=== PATIENT | male | born 2000 | race Caucasian/White ===

== ENCOUNTER 2025-03-09 15:31 | Emergency (ER) | payer SELFPAY ==
--- OUTSIDE RECORDS SUMMARY | 2021-09-18 04:15 | XMS_ITS | Continuity of Care Document ---
Author Organization [facility] Address [address] [id number] [address] Phone Care Team Providers Care Supervisor Order Takers Name Role Phone Rupinder Escobar DDS Unavailable Unavaila ble Medications Medication Instructions Dosage Effective Dates (start - stop) Status Comments amoxicillin 500 mg capsule take 2 capsules by oral route at first dose and then 1 every 8 hours until gone for dental infection - Active hydrocodone 5 mg-acetaminophen 325 mg tablet take 1 tablet by oral route every 6 hours as needed for pain from oral surgery - Active Procedures Procedure Date Post Op No Charge EDR Approval Note Post Op No Charge EDR Approval Note Limited Oral Evaluation Problem Focused Intraoral Periapical First Film Intraoral Periapical Each Additional Film Extraction, Erupted Tooth Or Exposed Hiral t (Elevati EDR Approval Note Extraction, Erupted Tooth Or Exposed Hiral t (Elevati Limited Oral Evaluation Problem Focused Intraoral Periapical First Film EDR Approval Note Intraoral Periapical First Film Limited Oral Evaluation Problem Focused Extraction, Erupted Tooth Or Exposed Hiral t (Elevati Extraction, Erupted Tooth Or Exposed Hiral t (Elevati EDR Approval Note Intraoral Periapical First Film Intraoral Periapical Each Additional Film Limited Oral Evaluation Problem Focused Extraction, Erupted Tooth Or Exposed Hiral t (Elevati Extraction, Erupted Tooth Or Exposed Hiral t (Elevati EDR Approval Note EDR Approval Note Limited oral eval, x-ray & 1st extractio n Urgent Each Additional Extraction Intraoral Periapical First Film Intraoral Periapical Each Additional Film Intraoral Periapical Each Additional Film Intraoral Periapical Each Additional Film Comprehensive Oral Evaluatio n New Or Established Bitewings Four Films EDR Approval Note Self-management Goals Reviewed 17 Oral Hygiene Instructions Nutritional Counseling For Control Of De ntal Disea Caries High Risk Limited Oral Evaluation Problem Focused EDR Approval Note Bitewings Four Films Periodic Oral Evaluation Established Patient Prophylaxis Adult EDR Approval Note EDR Approval Note Limited Oral Evaluation Problem Focused Intraoral Periapical First Film Intraoral Periapical Each Additional Film Intraoral Periapical Each Additional Film EDR Approval Note Limited Oral Evaluation Problem Focused Intraoral Periapical First Film EDR Approval Note Oral Hygiene Instructions Nutritional Counseling For Control Of De ntal Disea Caries High Risk Pulp Cap Indirect (Excluding Final Moravian) Amalgam One Surface, Primary Or Permanent Amalgam Two Surfaces, Primary Or Permanent Amalgam Four Or More Surfaces, Primary Or Perman EDR Approval Note Oral Hygiene Instructions Nutritional Counseling For Control Of De ntal Disea Caries Moderate Risk Resin-Based Composite One Surface, Anterior EDR Approval Note Core Buildup, Including Any Pins 2015 Anterior (Excluding Final Moravian) M EDR Approval Note Self-management Goals Reviewed 16 Oral Hygiene Instructions Nutritional Counseling For Control Of De ntal Disea Caries High Risk Resin-Based Composite Four Or More Surfaces Or I EDR Approval Note Self-management Goals Reviewed 16 Oral Hygiene Instructions Nutritional Counseling For Control Of De ntal Disea Caries High Risk Resin-Based Composite One Surface, Anterior Amalgam Three Surfaces, Primary Or Permanent Amalgam One Surface, Primary Or Permanent EDR Approval Note Self-management Goals Reviewed 16 Oral Hygiene Instructions Nutritional Counseling For Control Of De ntal Disea Caries High Risk Oral Hygiene Instructions Nutritional Counseling For Control Of De ntal Disea Caries High Risk Amalgam One Surface, Primary Or Permanent Amalgam One Surface, Primary Or Permanent Amalgam One Surface, Primary Or Permanent Resin-Based Composite Four Or More Surfaces, Pos Pulp Cap Indirect (Excluding Final Moravian) EDR Approval Note Amalgam Two Surfaces, Primary Or Permanent EDR Approval Note Self-management Goals Reviewed 16 Oral Hygiene Instructions Nutritional Counseling For Control Of De ntal Disea Caries High Risk Comprehensive Oral Evaluatio n New Or Established Bitewings Four Films Panoramic Film Intraoral Periapical First Film Intraoral Periapical Each Additional Film Intraoral Periapical Each Additional Film Prophylaxis Adult Topical Fluoride Varnish; Therapeutic Ap plication Self-management Goals Reviewed 16 New Caries Lesion Oral Hygiene Instructions Nutritional Counseling For Control Of De ntal Disea Caries High Risk EDR Approval Note IMMUNIZATION ADMIN HEP A VACC, PED/ADOL, 2 DOSE IMMUNIZATION ADMIN HPV VACCINE 4 VALENT, IM IMMUNIZATION ADMIN MENINGOCOCCAL VACCINE, IM IMMUNIZATION ADMIN TDAP VACCINE >7 IM IMMUNIZATION ADMIN CHICKEN POX VACCINE, SC OFFICE/OUTPATIENT VISIT, EST IMMUNIZATION ADMIN FLU VACCINE NO PRESERV 3 & > OFFICE/OUTPATIENT VISIT, EST OFFICE/OUTPATIENT VISIT, NEW H1N1 Vaccine Advance Directives Directive Yes / No Effective Date File Name No Information Encounters Encounter Description Practice Location Reason(s) For Visit Diagnoses Date Provider Providers Copied on Encounter [facility], [id number]- [facility] [place], [id number], [place] tel:[phone] [facility] No Information 2 Shawn Chance. [address], [place], [address], [place]. tel:[phone] Referring Provider: Rupinder Escobar, [address] [place], [address] . tel:[phone] [facility], [id number][facility] [place] [id number], [place] tel:[phone] [facility] No Information 2 Roge Calero. [address] [place], [address], [place]. tel:[phone] Referring Provider: Abdias Nieves, [address] [place], [address]. tel:[phone] [facility], [id number], [address], [place] tel:[phone] [facility] No Information 2 Julissa Chicas. [address], [place], [address], [place]. tel:[phone] Referring Provider: Juan Francisco Purcell, [address] [place], [address] . tel:[phone] [facility], [id number], [id number], [place] tel:[phone] [facility] Encounter for dental exam and cleaning w/o abnormal findings 1 Lux Randle. [address] [place], [address], [place]. tel:[phone] Referring Provider: Jer Wasserman, [address] [place], [address]. tel:[phone] sulting Provider: Meron Mckee, [address] [place], [address] . tel:[phone] [facility], [id number], [address], [place] tel:[phone] [facility] Encounter for dental exam and cleaning w/o abnormal findings 0 Keshawn Santillan. [address], [place], [address], [place]. tel:[phone] Referring Provider: Tyrell Liao, [address] [place], [address] . tel:[phone] [facility], [id number]- [facility], [place], [place], [address], [place] tel:[phone] [facility] Encounter for dental exam and cleaning w/o abnormal findings 0 Keshawn Santillan. [address], [place], [address], [place]. tel:[phone] Referring Provider: Tyrell Liao, [address] [place], [address] . tel:[phone] [facility], [id number]- [facility], [place], [place], [address], [place] tel:[phone] [facility] Encounter for dental exam and cleaning w/o abnormal findings No Information [facility], [id number]- [place], [address], [place] tel:[phone] [facility] Encounter for dental exam and cleaning w/o abnormal findings No Information [facility], [id number]- [facility], [place], [place], [address], [place] tel:[phone] [facility] Encounter for dental exam and cleaning w/o abnormal findings Roge Calero. [address] [place], [address], [place]. tel:[phone] Referring Provider: Abdias Nieves, [address] [place], [address]. tel:[phone] [facility], [id number]- [place], [address], [place] tel:[phone] [facility] Encounter for dental exam and cleaning w/o abnormal findings 7 Lux Randle. [address] [place], [address], [place]. tel:[phone] Referring Provider: Jer Wasserman, [address] [place], [address]. tel:[phone] [facility], [id number]- [place], [address], [place] tel:[phone] [facility] Encounter for dental exam and cleaning w/o abnormal findings 4- 7 No Information [facility], [address] [id number]- [place], [address], [place] tel:[phone] [facility] Encounter for dental exam and cleaning w/o abnormal findings 8- 6 No Information [facility], [id number]- [place], [address], [place] tel:[phone] [facility] Encounter for dental exam and cleaning w/o abnormal findings 0 1- 6 No Information [facility], [id number] [id number]- [place], [address], [place] tel:[phone] [facility] Encounter for dental exam and cleaning w/o abnormal findings 0- 6 No Information [facility], [id number]- [place], [address], [place] tel:[phone] [facility] Encounter for dental exam and cleaning w/o abnormal findings 0 2- 6 No Information [facility], [id number]- [place], [address], [place] tel:[phone] [facility] Encounter for dental exam and cleaning w/o abnormal findings 5-201 6 No Information [facility], [id number]- [facility], [place], [place], [address], [place] tel:[phone] [facility] No Information 6 No Information [facility], [address] [id number] [id number], [place], [address], [place] tel:[phone] [facility] No Information 6 No Information [facility], [address] [id number], [place], [address], [place] tel:[phone] [facility] Encounter for dental exam and cleaning w/o abnormal findings 6 No Information [facility], [address] [id number], [place], [place], [address], [place] tel:[phone] [facility] F1 No Information 2 No Information OFFICE/OUTPAT IENT VISIT, [facility], [id number], [address], [place] tel:[phone] LINK Immunization (chief complaint) No Information 2 No Information OFFICE/OUTPAT IENT VISIT, [facility], [address] [id number], [place], [place], [address], [place] tel:[phone] LINK Immunizations (chief complaint) No Information 1 No Information [facility], [address] [id number] [id number], [address], [place] tel:[phone] Family [facility] F1 No Information 0 No Information OFFICE/OUTPAT IENT VISIT, [facility], [address] [id number] [place] [address], [place] tel:[phone] LINK ear pain (chief complaint) No Information 201 0 No Information [facility], [address] [id number]- [facility], [place], [place], [address], [place] tel:[phone] Family [facility] F1 No Information 6200 9 No Information Family History Family Member Type Diagnosis Age At Onset Mother Problem (finding) Alive and well Immunizations Vaccine Date Status Comments Hep A (ped/adol, 2 dose) administered Joselyn rce: New Immunization Record Tdap (Boostrix r) administered Source: Ne w Immunization Record MCV4 (11-55 yrs) administered Source: New Immunization Record Varicella administered Source: New Imm unization Record flu (split) preservative brad e, 3 yrs or older administered Source: New Immuniza tion Record H1N1 Vaccine administered Source: Source Unspecified H1N1 administered Source: New Imm unization Record polio, inactivated (IPV) administered Joselyn rce: New Immunization Record MMR administered Source: New Imm unization Record DTaP administered Source: New Imm unization Record varicella administered Source: New Imm unization Record polio, inactivated (IPV) administered Joselyn rce: New Immunization Record MMR administered Source: New Imm unization Record HIB - unspecified administered Note: Set procedure code where blank for historical non-specific HIB entry. ; Source: New Immunization Record DTaP administered Source: New Imm unization Record polio, inactivated (IPV) administered Joselyn rce: New Immunization Record HIB - unspecified administered Note: Set procedure code where blank for historical non-specific HIB entry. ; Source: New Immunization Record hep B (ped/adol, 3 dose) administered Joselyn rce: New Immunization Record DTaP administered Source: New Imm unization Record polio, inactivated (IPV) administered Joselyn rce: New Immunization Record HIB - unspecified administered Note: Set procedure code where blank for historical non-specific HIB entry. ; Source: New Immunization Record hep B (ped/adol, 3 dose) administered Joselyn rce: New Immunization Record DTaP administered Source: New Imm unization Record hep B (ped/adol, 3 dose) administered Joselyn rce: New Immunization Record HPV (quadrivalent) administered Source: N ew Immunization Record Payers Payer name Insurance type Covered alliance party ID Authoriza tion(s) No Information Social History Type Description Quantity Date Captured Comments Alcohol Use Details Caffeine Use Details Unknown Tobacco Use Status No Information Smoking Status No Information Sex Male Sexual Orientation Heterosexual Gender Identity Male Chief Complaint And Reason For Visit No Information Reason For Referral Reason For Referral No Information History Of Present Illness Encounter Date Complaint History Of Prese nt Illness No Information Functional Status Date Functional Assessmen t No Information Instructions Date Instruction Additional Infor mation Lifestyle education Related to D ental Examination Lifestyle education Related to D ental Examination Lifestyle education Related to D ental Examination Lifestyle education Related to D ental Examination Lifestyle education Related to D ental Examination Lifestyle education Related to D ental Examination Lifestyle education Related to D ental Examination Lifestyle education Related to D ental Examination Lifestyle education Related to D ental Examination Lifestyle education Related to D ental Examination Lifestyle education Related to D ental Examination Recheck if symptoms worsen or not improved. Related to [employer], serous Should resolve on its own. Relat ed to [employer], serous Assessments Type Assessment Date No Information Patient Care Teams Name Effective Dates (start - stop) Status Members No Information
--- OUTSIDE RECORDS SUMMARY | 2025-03-09 15:37 | XMS_ITS | Encounter Summary ---
Author Organization [facility] Address [address] [place] [address] Care Team Providers Care Pulper Name Role Phone Unavailable Primary Care Provider Unavailabl e Reason for Visit * Reason Comments Office Visit: Converted Data Conversion Encounter Details Date Type Department Care Team (Late st Contact Info) Description 03/11/2024 Dental Interim Note [facility] [address] [place] [address] Default, [facility] [place] Social History Tobacco Use Types Packs/Day Years Used Date Smoking Tobacco: Never Assessed Social Connections Answer Date Recorded Social Connections and Isolation 0 12/26/2023 Financial Resource Strain Answer Date R ecorded Financial Resource Strain 0 2023 Stress Answer Date Recorded Stress 0 12/26/2023 Physical Activity Answer Date Recorded Physical Activity 0 12/26/2023 Food Insecurity Answer Date Recorded Food 0 12/26/2023 Transportation Needs Answer Date Record ed Transportation 0 12/26/2023 Housing Stability Answer Date Recorded Housing 0 12/26/2023 Safety and Environment Answer Date Arnoldo rded Safety 0 12/26/2023 Utilities Answer Date Recorded Utilities 0 12/26/2023 Employment Answer Date Recorded Employment 0 12/26/2023 Sex and Gender Information Value Date Recorded Sex Assigned at Not on file Legal Sex Male 7:20 PM PDT Gender Identity Male 02/22/2024 5:23 PM PDT Sexual Orientation Straight 02/22/2024 5: 23 PM PDT documented as of this encounter Plan of Treatment Scheduled Orders Name Type Priority Associated Diagnoses Order Schedule 2 MO 2 MO RESIN-BASED COMPOSITE - TWO SURFACES POSTERIOR Dental Procedures Routine 1 Occurrenc es starting 02/19/2024 4 DO 4 DO RESIN-BASED COMPOSITE - TWO SURFACES POSTERIOR Dental Procedures Routine 1 Occurrenc es starting 02/19/2024 7 7 CROWN - PORCELAIN FUSED TO CARBALLO METAL Dental Procedures Routine 1 Occurrences starting 02/19/2024 8 DF 8 DF RESIN-BASED COMPOSITE TWO SURFACES ANTERIOR Dental Procedures Routine 1 Occurrence s starting 02/19/2024 12 DO 12 DO RESIN-BASED COMPOSITE - TWO SURFACES POSTERIOR Dental Procedures Routine 1 Occurrenc es starting 02/19/2024 16 16 EXTRACTION ERU TOOTH RQR REMV BONE &/SECTN TOOTH Dental Procedures Routine 1 Occurrenc es starting 02/19/2024 17 17 EXTRACTION ERU TOOTH RQR REMV BONE &/SECTN TOOTH Dental Procedures Routine 1 Occurrenc es starting 02/19/2024 20 O 20 O RESIN-BASED COMPOSITE - ONE SURFACE POSTERIOR Dental Procedures Routine 1 Occurrence s starting 02/19/2024 21 O 21 O RESIN-BASED COMPOSITE - ONE SURFACE POSTERIOR Dental Procedures Routine 1 Occurrence s starting 02/19/2024 32 32 EXTRACTION ERU TOOTH RQR REMV BONE &/SECTN TOOTH Dental Procedures Routine 1 Occurrenc es starting 02/19/2024 10 10 CROWN - PORCELAIN/CERAMIC Dental Procedures Routine 1 Occurrence s starting 02/19/2024 10 10 ENDODONTIC THERAPY ANTERIOR TOOTH Dental Procedures Routine 1 Occurrences starting 02/19/2024 7 7 CROWN - PORCELAIN/CERAMIC Dental Procedures Routine 1 Occurrence s starting 02/19/2024 9 MIDFL 9 MIDFL RESIN-BASED COMPOSITE-4/> SURFACES ANTERIOR Dental Procedures Routine 1 Occurrence s starting 02/19/2024 documented as of this encounter Visit Diagnoses Not on filedocumented in this encounter
--- OUTSIDE RECORDS SUMMARY | 2025-03-09 15:37 | XMS_ITS | Clinical Summary ---
Author Organization [facility] Address [address] [place] [address] Care Team Providers Care Computer Sciences Professor Name Role Phone Unavailable Primary Care Provider Unavailabl e Source Comments PLEASE NOTE, if this patient is a minor, it may be UNLAWFUL to discuss sensitive information that is contained in these records (such as FAMILY PLANNING, MENTAL HEALTH or SUBSTANCE ABUSE) with the minor patient's parent or other person without the patient's specific authorization.[facility] Medications amoxicillin (AMOXIL) 500 mg capsule take 2 capsules by oral route at first dose and then 1 every 8 hours until gone for dental infection 2 Active HYDROcodone-palomo taminophen (NORCO) 5-325 mg per tablet Take 1 Tablet by mouth every 6 hours as needed 2 Active Active Problems Problem Noted Date Diagnosed Date Toothache 06/27/2020 Immunizations Immunization Administration Dates Next Due DTAP (Infanrix) 04/22/2004, 0,06/08/1999,07/14 HEP B, PED/ADOL ([id number]/RECOMBIVAX-PEDS) 06/08/1999,1998,1998 Hep A, Ped/adol, 2 Dose 10/11/2011 Hib (HbOC) 12/06/1999,06/08/1999,1998 IPV (IPOL) 04/22/2004, 0,06/08/1999,07/14 MENINGOCOCCAL MCV4P (MENACTRA) 10/11/2011 MMR (MMR II/Priorix) 04/22/2004,12/06/1999 Novel [id number], injectable 06/28/2009 Novel [id number], preservative-free, injectable 06/28/2009 [facility] State Funded Flu Vaccine 07/12/2011 TDAP 10/11/2011 Varicella (Varivax), Live Vaccine 10/11/2011,12/1999 Social History Tobacco Use Types Packs/Day Years Used Date Smoking Tobacco: Never Assessed Social Connections Answer Date Recorded Connectedness 0 05/19/2024 Financial Resource Strain Answer Date R ecorded Financial Resource Strain 0 2023 Stress Answer Date Recorded Stress 0 12/26/2023 Physical Activity Answer Date Recorded Physical Activity 0 12/26/2023 Food Insecurity Answer Date Recorded Food 0 05/29/2024 Transportation Needs Answer Date Record ed Transportation 0 12/26/2023 Housing Stability Answer Date Recorded Housing 0 12/26/2023 Safety and Environment Answer Date Arnoldo rded Safety 0 12/26/2023 Utilities Answer Date Recorded Utilities 0 12/26/2023 Employment Answer Date Recorded Stress 0 05/19/2024 Sex and Gender Information Value Date Recorded Sex Assigned at Not on file Legal Sex Male 7:20 PM PDT Gender Identity Male 02/22/2024 5:23 PM PDT Sexual Orientation Straight 02/22/2024 5: 23 PM PDT Last Filed Vital Signs Vital Sign Reading Time Taken Comments Blood Pressure 145/97 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/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 Pulse - - Temperature - - Respiratory Rate - - Oxygen Saturation - - Inhaled Oxygen Concentration - - Weight - - Height - - Body Mass Index - - Plan of Treatment Health Maintenance Due Date Last Done Comments Anxiety Screening 1998 Hepatitis C Screening 1998 Tobacco Screening 1998 HIV Screening 2013 Imm-HPV (1 - Male 3-dose series) 2013 Imm-DTaP/Tdap/Td (6 - Td or Tdap) 10/11/2021 10/11/2011, 04/22/2004, 12/06/1999, Additional history exists [id number] ( - season) 2024 Alcohol and Drug Screen 09/03/2024 Depression Annual Screen 09/03/2024 Hypertension Screening (#1) 09/10/2024 Imm-Influenza (Season Ended) 2025 07/12/2011 Imm-Hepatitis B Completed 06/08/1999, 07/04, 1998
--- OUTSIDE RECORDS SUMMARY | 2025-03-09 15:37 | XMS_ITS | Clinical Summary ---
Author Organization [facility] Address [address] [place]: [place] [address] Care Team Providers Care Planning Coordinator Name Role Phone Paul Mistry DO Primary Care Provider Allergies No known active allergies Medications No known medications Active Problems No known active problems Encounters Date Type Department Care Team Description 02/18/2025 External Device Data [facility] ABSTRACTION Provider, Abstract 01/23/2025 External Device Data [facility]STRACTION Provider, Abstract from Last 3 Months Immunizations Immunization Administration Dates Next Due (M-M-R II/PRIORIX)(12 MO UP) MEASLES, MUMPS AND RUBELLA VIRUS VACCINE, 0.5 ML IM/SUBCUT 12/06/1999 (VARIVAX)(12 MOS UP)VARICELL A VIRUS VACCINE (PF) 0.5 ML, SUB CUT 12/06/1999 Dt Dtp Dtap Vaccine 12/06/1999 HIB, Unspecified Formulation 12/06/1999 IPV/OPV 12/06/1999 Social History Tobacco Use Types Packs/Day Years Used Date Smoking Tobacco: Never Tobacco Cessation:Counseling Given: Not Answered Alcohol Use Standard Drinks/Week Comments No 0 (1 standard drink = 0.6 oz pur e alcohol) Sex and Gender Information Value Date Recorded Sex Assigned at Not on file 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 Gender Identity Not on file Sexual Orientation Not on file Last Filed Vital Signs Vital Sign Reading Time Taken Comments Blood Pressure 133/77 04/21/2024 6:31 PM CDT Pulse 99 04/21/2024 6:31 PM CDT Temperature 36.2 C (97.1 F) 04/21/2024 6:31 PM CDT Respiratory Rate 18 04/21/2024 6:31 PM CDT Oxygen Saturation 98% 04/21/2024 6:31 PM CDT Inhaled Oxygen Concentration - - Weight 92.5 kg (204 lb) 04/21/2024 6:31 PM CDT Height 177.8 cm (5' 10 ) 04/21/2024 6:31 PM CDT Body Mass Index 29.27 04/21/2024 6:31 PM CDT Plan of Treatment Health Maintenance Due Date Last Done Comments HPV VACCINES (1 - Male 3-dos e series) 2013 INFLUENZA VACCINE (#1) 2025 DTAP/TDAP/TD VACCINES (7 - T d or Tdap) 02/15/2033 02/15/2023, 10/11/2011, 04/22/2004, Additional history exists HEPATITIS B VACCINES Completed 06/08/1999, 1998, 1998 Care Teams Planning Coordinator Relationship Specialty Start Date End Date Paul Mistry DO [address] [place] [address] PCP - General 11/02/15
[2025-03-09 16:36] VITALS: BP 108/74; PULSE 79; TEMP 36.8; O2SAT 98
--- NOTE | 2025-03-09 16:48 | XRR_ITS ---
PROCEDURE INFORMATION: Exam: XR Right Ankle Exam date and time: 03/09/2025 4:54 PM Age: 24 years old Clinical indication: Injury or trauma; Other: RT foot; Other: Pain TECHNIQUE: Imaging protocol: Radiologic exam of the right ankle. Views: 3 or more views. COMPARISON: CR (LOW EXM, ) 03/09/2025 4:52 PM FINDINGS: Bones/joints: Ankle mortise is intact without evidence of acute fracture or subluxation. Soft tissues: No gross soft tissue abnormality. XR/XR ankle RT min 3V* [id number] IMPRESSION: 1. No evidence of acute fracture or subluxation.
--- NOTE | 2025-03-09 16:48 | XRR_ITS ---
PROCEDURE INFORMATION: Exam: XR Right Foot Exam date and time: 03/09/2025 4:52 PM Age: 24 years old Clinical indication: Injury or trauma; Fall; Other: Pain TECHNIQUE: Imaging protocol: Radiologic exam of the right foot. Views: 3 or more views. COMPARISON: No relevant prior studies available. FINDINGS: Bones/joints: No evidence of acute fracture or subluxation. Tarsometatarsal alignment is maintained. Mild hallux valgus. Soft tissues: No gross soft tissue abnormality. XR/XR foot RT min 3V* [id number] IMPRESSION: 1. No evidence of acute fracture or subluxation.
--- NOTE | 2025-03-09 16:49 | W.ED.LOWEXIN ---
Documented by User: SUSI Easton 03/09/25 16:51 HPI - Extremity Injury (Lower) General: Chief Complaint: Extremity Injury, Lower Stated Complaint: R leg and foot pain Time Seen by Provider: 03/09/25 16:46 Source: patient Mode of arrival: wheelchair Limitations: no limitations History of Present Illness: Patient is a 24-year-old male presents to ED today with a complaint of right foot and ankle pain from an injury on a trampoline just prior to arrival. Patient states he was trying to do a back flip and when he landed he inverted his foot and ankle. No other injuries or complaints at this time. Patient states he is not able to bear weight secondary to discomfort. MD complaint: ankle injury and foot injury Onset (ago): hour(s) Injury: Right: ankle and foot Type of Injury: inversion Place: home Severity: moderate Relieving factors: immobilization Exacerbating factors: weight bearing, movement and palpation Context: jumping Associated symptoms: Reports inability to bear weight Other symptoms: none Related Data Previous Rx's ?Medication ?Instructions ?Recorded ketorolac 10 mg tablet 10 mg PO Q6H PRN pain 5 days #20 03/09/25 tabs Allergies Allergy/AdvReac Type Severity Reaction Status Date / Time No Known Allergies Allergy Verified 03/09/25 16:44 Review of Systems Musc: Reports: extremity pain (R foot), joint pain (R ankle) and joint swelling (R ankle); Denies: extremity swelling Neuro: Denies: numbness in extremities or sensory changes Physical Exam Const: COMMON NORMALS: no acute distress, average body habitus, no limitations, healthy appearing, alert and well nourished Extremity: COMMON NORMALS: capillary refill normal and no calf tenderness GENERAL: Yes normal exam except as noted RIGHT LOWER EXTREMITY: Yes foot & digits (TTP/mild edema lateral R ankle; no obvious bony deformity) Right ankle: Yes neurovascular exam (normal) and Yes foot & digits (mild discomfort lateral R foot w/o deformity or edema) Right foot and digits: Yes neurovascular exam (normal) Neuro: COMMON NORMALS: moves all extremities, no focal motor deficits and no sensory deficits noted SENSORIUM/ORIENTATION: Yes alert Course Vital Signs: Vital signs: Vital Signs Temperature 98.2 F 03/09/25 16:36 Pulse Rate 79 03/09/25 16:36 Blood Pressure 108/74 03/09/25 16:36 Pulse Oximetry 98 03/09/25 16:36 Oxygen Delivery Me thod Room Air 03/09/25 16:36 Discharge Plan Discharge Patient Disposition: Home Clinical Impression: Ankle sprain and strain, Sprain of foot, right Condition: Stable Prescriptions: New ketorolac 10 mg tablet 10 mg PO Q6H PRN (Reason: pain) 5 Days Qty: 20 0RF Discharge Orders: Discharge ED (Routine); Ordered 03/09/25 Ordered By: Ivan Gould Referrals: Mal Borjas DO [Primary Care Provider, [facility]] Patient Instructions: Ankle Sprain (ED), Pain Management, Patient Portal & Kash Instructions Activity Restrictions/Additional Instructions: No fractures or acute bony abnormalities noted on the x-rays, pending radiology review These are likely sprains of the ankle and foot Use the provided elastic wrap to help support the ankle and foot. Use the provided crutches to slowly increase weightbearing on the right foot/ankle. Work on range of motion exercises at least twice daily beginning tomorrow. Act as if your great toe is a pen and draw your ABCs. Follow-up with primary care within 1 week for recheck, sooner if needed Return to the emergency department if any further injury, rapid worsening symptoms, and as needed Print Language: [place] Coding Level of Care Code ED Director Of Group Counseling Program for [employer] [employer] Documented by User: ESTER Catalan 03/09/25 18:50 HPI - Extremity Injury (Lower) General: Chief Complaint: Extremity Injury, Lower Stated Complaint: R leg and foot pain Time Seen by Provider: 03/09/25 16:46 Related Data Previous Rx's ?Medication ?Instructions ?Recorded ketorolac 10 mg tablet 10 mg PO Q6H PRN pain 5 days #20 03/09/25 tabs Allergies Allergy/AdvReac Type Severity Reaction Status Date / Time No Known Allergies Allergy Verified 03/09/25 16:44 Course Vital Signs: Vital signs: Vital Signs Temperature 98.2 F 03/09/25 16:36 Pulse Rate 79 03/09/25 16:36 Blood Pressure 108/74 03/09/25 16:36 Pulse Oximetry 98 03/09/25 16:36 Oxygen Delivery Me thod Room Air 03/09/25 16:36 MDM - Extremity Injury (Lower) Medical Decision Making Received patient from SUSI Mathews at 1700 due to shift change. Awaiting x-ray. Patient does have pulse, motor, and sensation of the right foot. There is tenderness to the lateral ankle and lateral foot. Ketorolac ordered. Independent review of x-rays reveal no fracture or acute abnormalities. Awaiting radiology read. Independent read with no fracture or acute bony abnormalities. Will proceed with treatment for sprain. Elastic wrap applied and crutches provided. Short course anti-inflammatories sent to patient's pharmacy. Recommend follow-up with primary care within a week for recheck, sooner if needed. Return precautions provided. Patient and family state understanding and have no further questions or concerns at this time. Differential Diagnosis Likely ankle sprain and strain, fracture of toe and ankle fracture Medical Records I reviewed the patient's medical records. XR interpretation done by ED provider, pending radiology final review ED provider radiology interpretation(s): X-ray right foot: No fracture or acute bony abnormality noted, pending radiology review X-ray right ankle: No fracture or acute bony abnormality noted, pending radiology review Discharge Plan Discharge Patient Disposition: Home Clinical Impression: Ankle sprain and strain, Sprain of foot, right Condition: Stable Prescriptions: New ketorolac 10 mg tablet 10 mg PO Q6H PRN (Reason: pain) 5 Days Qty: 20 0RF Discharge Orders: Discharge ED (Routine); Ordered 03/09/25 Ordered By: Ivan Gould Referrals: Mal Borjas DO [Primary Care Provider, Family Practice] Patient Instructions: Ankle Sprain (ED), Pain Management, Patient Portal & Kash Instructions Activity Restrictions/Additional Instructions: No fractures or acute bony abnormalities noted on the x-rays, pending radiology review These are likely sprains of the ankle and foot Use the provided elastic wrap to help support the ankle and foot. Use the provided crutches to slowly increase weightbearing on the right foot/ankle. Work on range of motion exercises at least twice daily beginning tomorrow. Act as if your great toe is a pen and draw your ABCs. Follow-up with primary care within 1 week for recheck, sooner if needed Return to the emergency department if any further injury, rapid worsening symptoms, and as needed Print Language: [place] Coding Level of Care Code ED Director Of Group Counseling Program for [employer]
[2025-03-09 19:10] VITALS: BP 110/75; PULSE 77; O2SAT 98
== END 2025-03-09 19:11 | disposition home or self-care (01) ==
PROVIDERS: Emergency Provider Physician Assistant
DX: S93.401A Sprain of unspecified ligament of right ankle, initial encounter (principal); S93.601A Unspecified sprain of right foot, initial encounter; X58.XXXA Exposure to other specified factors, initial encounter
CPT/HCPCS: 73610; 73630; 96372; 99284; J1885